=== PATIENT | male | born 1970 | race Caucasian/White ===

== ENCOUNTER 2021-05-03 02:47 | Emergency (ER) | payer MEDICAID ==
[~2021-05-03] VITALS: Ht 182.9 cm; Wt 88.5 kg
--- NOTE | 2021-05-03 02:55 | NUR ---
Pt came in to ER with c/o shortness of breath for about "2 months" with productive cough. noted with slight wheezing. No c/o chest pain/pressure, no edema on extremities noted. No c/o GI/Gu distress. Ambulatory, steady gait. Afebrile. No c/o pain/discomfort. Bed in lowest position.
--- NOTE | 2021-05-03 02:58 | NUR ---
Dr. Eisenberg at bedside, MSE in progress.
[2021-05-03] MEDS ORDERED: IPRATROPIUM BROMIDE 0.5 MG/2.5 ML NEBU NEB ONE (03:15)
[2021-05-03] MEDS ORDERED: ALBUTEROL SULFATE 2.5 MG/3 ML NEBU NEB ONE (03:15)
--- NOTE | 2021-05-03 03:31 | NUR ---
RT at bedside to do breathing treatment.
[2021-05-03] MEDS ORDERED: ALBUTEROL SULFATE 2.5 MG/3 ML NEBU ONE (03:35)
[2021-05-03] MEDS ORDERED: IPRATROPIUM BROMIDE 0.5 MG/2.5 ML NEBU ONE (03:35)
[2021-05-03] MEDS ORDERED: AZITHROMYCIN 250 MG TABLET PO ONE (03:45)
[2021-05-03] MEDS ORDERED: AZITHROMYCIN 250 MG TABLET ONE (03:52)
--- NOTE | 2021-05-03 03:53 | NUR ---
Patient discharged to home in stable condition. Written and verbal after care instructions given. Patient verbalizes understanding of instructions. Stressed follow up or return to ER for worsening s/s. Pt. denies SOB, chest pain, chills, cough, and has no fever. Vss. All belongings with pt.
[2021-05-03 03:54] VITALS: BP 125/65
== END 2021-05-03 03:55 | disposition home or self-care (01) ==
LOC: ER 02:53
DX: J06.9 Acute upper respiratory infection, unspecified (principal); Z20.822 Contact with and (suspected) exposure to COVID-19
CPT/HCPCS: 71045; 94664; A4663; J3590; Q0144

== ENCOUNTER → 2022-11-05 | Emergency (ER) | payer MEDICAID ==
[~2022-11-05] VITALS: Ht 182.9 cm; Wt 86.2 kg
[~2022-11-05] MED LIST: ALBU18HF2 INH; ALBUTEROL SULFATE 2.5 MG/3 ML NEBU NEB ONE; ALBUTEROL SULFATE 2.5 MG/3 ML NEBU ONE; IPRATROPIUM BROMIDE 0.5 MG/2.5 ML NEBU NEB ONE; IPRATROPIUM BROMIDE 0.5 MG/2.5 ML NEBU ONE; PRED20TA PO; predniSONE 10 MG TABLET PO ONE; predniSONE 20 MG TABLET ONE
--- NOTE | 2022-11-05 07:05 | NUR ---
RT at bedside for breathing treatment
--- NOTE | 2022-11-05 07:05 | NUR ---
XRAY at bedside.
--- NOTE | 2022-11-05 07:15 | NUR ---
ENDORSED TO PAULINO OTERO
--- NOTE | 2022-11-05 07:44 | NUR ---
Bibiana ramírez in EDM - 11/05/22 at 0753 by NADIA Patient discharged to home in stable condition. Written and verbal after care instructions given. Patient verbalizes understanding of instructions. Stressed follow up or return to ER for worsening s/s.
[2022-11-05 07:45] VITALS: BP 128/78
--- NOTE | 2022-11-05 09:36 | NUR ---
Patient discharged to home in stable condition. Written and verbal after care instructions given. Patient verbalizes understanding of instructions. Stressed follow up or return to ER for worsening s/s.
== END | disposition home or self-care (01) ==
LOC: ER 06:05
DX: J40 Bronchitis, not specified as acute or chronic (principal); Z20.822 Contact with and (suspected) exposure to COVID-19; F15.10 Other stimulant abuse, uncomplicated; Z28.310 Unvaccinated for COVID-19
CPT/HCPCS: 99285; 71045; 87426; 93005; 94644; 94645; J7512; A4663; J3590

== ENCOUNTER 2023-01-12 10:50 | Emergency (ER) | payer MEDICAID ==
[~2023-01-12] VITALS: Ht 182.9 cm; Wt 86.2 kg
[~2023-01-12 10:50] MED LIST changes: -ALBUTEROL SULFATE 2.5 MG/3 ML NEBU NEB ONE; -ALBUTEROL SULFATE 2.5 MG/3 ML NEBU ONE; -IPRATROPIUM BROMIDE 0.5 MG/2.5 ML NEBU NEB ONE; -IPRATROPIUM BROMIDE 0.5 MG/2.5 ML NEBU ONE; -predniSONE 10 MG TABLET PO ONE; -predniSONE 20 MG TABLET ONE
[2023-01-12] MEDS ORDERED: METHADONE (11:01)
[2023-01-12] MEDS ORDERED: ACETAMINOPHEN ES 500 MG TABLET PO ONE (11:15)
[2023-01-12 11:30] LABS: HEMATOCRIT 36.8 % (36.7-47.1); MEAN CORPUSCULAR HEMOGLOBIN 29.5 uug (23.8-33.4); MEAN CORPUSCULAR VOLUME 88.9 fL (73.0-96.2); PLATELET COUNT (AUTO) 305 K/uL (152-348)
[2023-01-12] MEDS ORDERED: IPRATROPIUM BROMIDE 0.5 MG/2.5 ML NEBU NEB ONE (11:30)
[2023-01-12] MEDS ORDERED: ALBUTEROL SULFATE 2.5 MG/3 ML NEBU NEB ONE (11:30)
[2023-01-12] MEDS ORDERED: ALBUTEROL SULFATE 2.5 MG/3 ML NEBU ONE (11:35)
[2023-01-12] MEDS ORDERED: IPRATROPIUM BROMIDE 0.5 MG/2.5 ML NEBU ONE (11:35)
[2023-01-12 11:40] LABS: CARBON DIOXIDE 29 mmol/L (21-32); CHLORIDE 100 mmol/L (98-107); CREATININE 0.8 mg/dL (0.6-1.3); GLUCOSE 96 mg/dL (74-106); POTASSIUM 3.6 mmol/L (3.5-5.1); UREA NITROGEN, BLOOD 14 mg/dL (7-18)
[2023-01-12] MEDS ORDERED: MORPHINE SULFATE 4 MG/1 ML DISP.SYRIN IV ONE (11:45)
[2023-01-12 11:56] LABS: ALANINE AMINOTRANSFERASE 17 U/L (16-63); ALKALINE PHOSPHATASE 94 U/L (50-136); ASPARTATE AMINOTRANSFERASE 16 U/L (15-37); BILIRUBIN,DIRECT 0.2 mg/dL (0.0-0.2); BILIRUBIN,TOTAL 0.7 mg/dL (0.2-1.0); TOTAL PROTEIN, SERUM 7.3 g/dL (6.4-8.2)
--- NOTE | 2023-01-12 11:58 | NUR ---
"Plan to admit" per Dr Reynolds. ER registration/admitting staff [facility] notified.
[2023-01-12] MEDS ORDERED: IV NORMAL SALINE 1000 ML BAG IV ONE (12:00)
[2023-01-12] MEDS ORDERED: CEFTRIAXONE 1 G in IV DEXTROSE 5% 50 ML IV SCH (12:00)
[2023-01-12] MEDS ORDERED: AZITHROMYCIN IV 500 MG in IV DEXTROSE 5% 250 ML IV ONE (12:00)
[2023-01-12] MEDS ORDERED: MORPHINE SULFATE 4 MG/1 ML DISP.SYRIN ONE (12:01)
[2023-01-12] MEDS ORDERED: CEFTRIAXONE /D5W 50ML IVPB **ER PYXIS IV ONE (12:01)
[2023-01-12] MEDS ORDERED: ACETAMINOPHEN 325 MG TABLET ONE (12:01)
[2023-01-12] MEDS ORDERED: AZITHROMYCIN 500MG/ D5W 250ML IVPB **ER PYXIS ONLY IV ONE (12:01)
--- NOTE | 2023-01-12 13:09 | NUR ---
Attempted to give report to Farzaneh, but charge nurse stated she is on break and will call back.
--- NOTE | 2023-01-12 13:27 | NUR ---
Still awaiting for [employer] to give authorization for patient to stay for admission.
--- NOTE | 2023-01-12 13:30 | NUR ---
2L nasal cannula placed on patient per MD's order.
--- NOTE | 2023-01-12 14:52 | NUR ---
Patient's insurance gave admission authorization to this hospital to ER registration/admitting staff N[facility].
--- NOTE | 2023-01-12 15:00 | NUR ---
Gave report to BRANDEN Moy
--- NOTE | 2023-01-12 15:12 | NUR ---
Doctor to doctor initiated.
[2023-01-12] MEDS ORDERED: ACETAMINOPHEN 325 MG TABLET PO PRN (15:30)
[2023-01-12] MEDS ORDERED: IV NS 1000 ML 1,000 ML IV PRN (15:30)
[2023-01-12] MEDS ORDERED: MAGNESIUM HYDROXIDE 30 ML LIQUID UDC PO PRN (15:30)
[2023-01-12] MEDS ORDERED: MORPHINE SULFATE 2 MG/1 ML DISP.SYRIN IV PRN (15:30)
[2023-01-12] MEDS ORDERED: REMEDY ESSENTIAL ZINC PASTE 113 GM TP PRN (15:30)
[2023-01-12] MEDS ORDERED: ZOLPIDEM 5 MG TABLET PO PRN (15:30)
[2023-01-12] MEDS ORDERED: ONDANSETRON 4 MG/2 ML VIAL IV PRN (15:30)
[2023-01-12] MEDS ORDERED: HYDROCODONE/APAP 10-325 MG TABLET PO PRN (15:30)
--- NOTE | 2023-01-12 15:41 | NUR ---
Patient would like to leave AMA. Dr. Khan paged. Awaiting call back.
--- NOTE | 2023-01-12 15:42 | NUR ---
Dr. Khan aware of patient wanting to leave AMA.
--- NOTE | 2023-01-12 15:59 | NUR ---
Patient does not wish to proceed with medical care recommended by Dr. Khan. Patient given information related to possible complications, up to and including , which could occur as a result of leaving the hospital at this time. Patient verbalizes understanding of risks involved due to leaving against medical advice. IV removed. Patient has signed AMA form.
[2023-01-12 16:00] VITALS: BP 103/69
[2023-01-12] MEDS ORDERED: ENOXAPARIN SODIUM 40 MG/0.4 ML DISP.SYRIN SQ SCH (18:00)
[2023-01-12] MEDS ORDERED: methylPREDNISolone SOD SUCC 40 MG/ML VIAL IV SCH (18:00)
[2023-01-13] MEDS ORDERED: CEFTRIAXONE 1 G in IV DEXTROSE 5% 50 ML IV SCH (12:00)
[2023-01-13] MEDS ORDERED: AZITHROMYCIN IV 500 MG in IV DEXTROSE 5% 250 ML IV SCH (13:00)
== END 2023-01-12 15:59 | disposition left against medical advice (07) ==
LOC: ER 10:50 → MEDSURG3 15:21 → UNDOADMIN 15:21
DX: J18.9 Pneumonia, unspecified organism (principal); R09.02 Hypoxemia; Z20.822 Contact with and (suspected) exposure to COVID-19; F11.20 Opioid dependence, uncomplicated; R94.31 Abnormal electrocardiogram [ECG] [EKG]
CPT/HCPCS: 99285; 96365; 93971; 71045; 96367; 96375; 87426; 87804 ×2; 80076; 80048; 83880; 85025; 84145; 85610; 87040 ×2; 84484; 36415; 93005; 94640; 87205; J0456; J0696; J2270; J7040; A4663; J3590; J7050

== ENCOUNTER 2023-09-30 19:52 | Emergency (ER) | payer MEDICAID ==
[~2023-09-30] VITALS: Ht 182.9 cm; Wt 83.9 kg
[~2023-09-30 19:52] MED LIST changes: +METHADONE
[2023-09-30] MEDS ORDERED: HYDROCODONE/APAP 5-325MG TABLET PO ONE (20:30)
[2023-09-30] MEDS ORDERED: HYDROCODONE/APAP 5-325MG TABLET ONE (20:31)
[2023-09-30 23:02] VITALS: BP 125/80; TEMP 98.5; O2SAT 99
== END 2023-09-30 23:03 | disposition home or self-care (01) ==
LOC: ER 19:54
DX: S92.425A Nondisplaced fracture of distal phalanx of left great toe, initial encounter for closed fracture (principal); S22.31XA Fracture of one rib, right side, initial encounter for closed fracture; S41.112A Laceration without foreign body of left upper arm, initial encounter; J44.9 Chronic obstructive pulmonary disease, unspecified; Z79.899 Other long term (current) drug therapy; V43.52XA Car driver injured in collision with other type car in traffic accident, initial encounter; Y93.89 Activity, other specified; Y92.410 Unspecified street and highway as the place of occurrence of the external cause; Y99.8 Other external cause status
CPT/HCPCS: 71101; 73590; 73630; A4606; A4663